=== PATIENT | male | born 1965 | race Two or more races ===

== ENCOUNTER 2019-11-08 13:09 | Inpatient (IN) | payer MEDICAID ==
[~2019-11-08] VITALS: Ht 167.6 cm; Wt 64.9 kg
[2019-11-08] MEDS ORDERED: SODIUM CHLORIDE 0.9% 1,000 ML IV ONE (15:22)
[2019-11-08 16:23] LABS: CHLORIDE 105 mEq/L (98-107)
[2019-11-08 16:26] LABS: PARTIAL THROMBOPLASTIN TIME 28.9 sec (23.4-31.0); PROTHROMBIN TIME 10.7 sec (9.6-11.0)
[2019-11-08 16:37] LABS: CLARITY URINE CLOUDY (CLEAR); COLOR URINE DARK YELLOW (YELLOW); KETONES URINE NEGATIVE (NEGATIVE); LEUKOCYTE ESTERASE URINE 3+ (NEGATIVE); NITRITE URINE POSITIVE (NEGATIVE); OCCULT BLOOD URINE 2+ (NEGATIVE); PH URINE 6.5 (4.5-8.0); PROTEIN URINE TRACE (NEGATIVE); SPECIFIC GRAVITY URINE 1.015 (1.005-1.030)
[2019-11-08 16:45] LABS: BASOPHILS % 0.5 % (0.0-2.0); EOSINOPHILS % 5.2 % (0.0-5.0); HEMATOCRIT. 34.7 % (42.0-52.0); HEMOGLOBIN. 11.9 g/dL (14.0-18.0); LYMPHOCYTES % 39.7 % (20.0-50.0); MEAN CORPUSCULAR HEMOGLOBIN 29.3 pg (28.0-32.0); MEAN CORPUSCULAR VOLUME 85.2 fL (80.0-94.0); MEAN PLATELET VOLUME 8.1 fl (7.4-10.4); MONOCYTES % 7.8 % (2.0-8.0); NEUTROPHILS % 46.8 % (40.0-76.0); PLATELET 285 x1000/uL (130-400); RED BLOOD CELL COUNT 4.08 mill/uL (4.7-6.1); RED CELL DISTRIBUTION WIDTH 15.3 % (11.6-14.6)
[2019-11-08] MEDS ORDERED: METRONIDAZOLE 500 MG PREMIX 100 ML IV ONE (18:00)
[2019-11-08] MEDS ORDERED: PIPERACILLIN/TAZ 3.375G PREMIX 50 ML IV ONE (18:00)
[2019-11-08] MEDS ORDERED: MORPHINE SULFATE 4 MG/ML CPJ (NOT FOR IM USE) IV ONE (18:45)
[2019-11-08] MEDS ORDERED: ONDANSETRON HCL 4MG/2ML INJ IV ONE (18:45)
[2019-11-08 22:00] VITALS: BP 112/74
[2019-11-08] MEDS ORDERED: ONDANSETRON HCL 4MG/2ML INJ IV PRN (22:30)
[2019-11-08] MEDS ORDERED: ACETAMINOPHEN 325MG TABLET PO PRN (22:30)
[2019-11-08] MEDS: LEVOFLOXACIN 500MG PREMIX 100 ML IV SCH (23:39)
[2019-11-08] MEDS: ATORVASTATIN CALCIUM 40MG TABLET PO SCH (23:39)
[2019-11-09] VITALS: BP 106/59
[2019-11-09] MEDS ORDERED: LIP40 PO (00:33)
[2019-11-09] MEDS ORDERED: DIAZ5TAB4 PO (00:33)
[2019-11-09] MEDS ORDERED: APIX5TAB PO (00:33)
[2019-11-09] MEDS ORDERED: DOCU-138 PO (00:33)
[2019-11-09] MEDS ORDERED: ASPI-1158 PO (00:33)
[2019-11-09] MEDS ORDERED: MORP15TA54 PO (00:33)
[2019-11-09] MEDS: METRONIDAZOLE 500 MG PREMIX 100 ML IV SCH ×3 (01:27→17:11)
[2019-11-09 04:00] VITALS: BP 128/80
[2019-11-09 08:00] VITALS: BP 109/73
[2019-11-09 08:34] LABS: BASOPHILS % 0.4 % (0.0-2.0); EOSINOPHILS % 2.6 % (0.0-5.0); HEMATOCRIT. 34.3 % (42.0-52.0); HEMOGLOBIN. 11.5 g/dL (14.0-18.0); LYMPHOCYTES % 28.2 % (20.0-50.0); MEAN CORPUSCULAR HEMOGLOBIN 28.7 pg (28.0-32.0); MEAN CORPUSCULAR VOLUME 85.7 fL (80.0-94.0); MEAN PLATELET VOLUME 7.9 fl (7.4-10.4); MONOCYTES % 7.4 % (2.0-8.0); NEUTROPHILS % 61.4 % (40.0-76.0); PLATELET 299 x1000/uL (130-400); RED CELL DISTRIBUTION WIDTH 15.4 % (11.6-14.6)
[2019-11-09 08:39] LABS: CHLORIDE 108 mEq/L (98-107)
[2019-11-09] MEDS: ASPIRIN 81MG TABLET PO SCH (08:50)
[2019-11-09] MEDS: DIAZEPAM 5 MG TABLET PO SCH ×2 (08:50→20:31)
[2019-11-09] MEDS: DOCUSATE SODIUM 100MG CAPSULE PO SCH ×2 (08:50→17:12)
[2019-11-09] MEDS: APIXABAN 5 MG TABLET PO SCH ×2 (08:50→17:12)
[2019-11-09] MEDS: MORPHINE SULFATE 15MG TABLET SR PO SCH ×2 (08:51→20:32)
[2019-11-09] MEDS: PANTOPRAZOLE SODIUM 40 MG/VIAL IV SCH (08:52)
[2019-11-09 12:04] VITALS: BP 110/67
[2019-11-09 16:04] VITALS: BP 108/64
[2019-11-09 20:00] VITALS: BP 105/63
[2019-11-09] MEDS: ATORVASTATIN CALCIUM 40MG TABLET PO SCH (20:31)
[2019-11-10] VITALS: BP 133/87
[2019-11-10] MEDS: LEVOFLOXACIN 500MG PREMIX 100 ML IV SCH (00:43)
[2019-11-10 04:00] VITALS: BP 132/88
[2019-11-10] MEDS: METRONIDAZOLE 500 MG PREMIX 100 ML IV SCH ×2 (04:30→09:54)
[2019-11-10 06:46] LABS: HEMOGLOBIN 11.2 g/dL (14.0-18.0); MEAN CORPUSCULAR HEMOGLOBIN 29.4 pg (28.0-32.0); MEAN CORPUSCULAR VOLUME 84.3 fL (80.0-94.0); PLATELET 278 x1000/uL (130-400); RED CELL DISTRIBUTION WIDTH 15.4 % (11.6-14.6)
[2019-11-10 07:07] LABS: CHLORIDE 104 mEq/L (98-107)
[2019-11-10 08:00] VITALS: BP 116/73
[2019-11-10] MEDS: MORPHINE SULFATE 15MG TABLET SR PO SCH ×2 (08:25→20:47)
[2019-11-10] MEDS: DOCUSATE SODIUM 100MG CAPSULE PO SCH ×3 (08:25→16:16)
[2019-11-10] MEDS: APIXABAN 5 MG TABLET PO SCH ×2 (08:25→16:10)
[2019-11-10] MEDS: ASPIRIN 81MG TABLET PO SCH (08:25)
[2019-11-10] MEDS: DIAZEPAM 5 MG TABLET PO SCH ×2 (08:25→20:47)
[2019-11-10] MEDS: PANTOPRAZOLE SODIUM 40 MG/VIAL IV SCH (08:25)
[2019-11-10 12:00] VITALS: BP 102/65
[2019-11-10 16:00] VITALS: BP 93/64
[2019-11-10] MEDS: LEVOFLOXACIN 500MG TABLET PO SCH (16:10)
[2019-11-10 20:00] VITALS: BP 102/66
[2019-11-10] MEDS: ATORVASTATIN CALCIUM 40MG TABLET PO SCH (20:47)
[2019-11-10] MEDS: METRONIDAZOLE 500MG TABLET PO SCH (21:25)
[2019-11-11] VITALS: BP 105/66
[2019-11-11 04:00] VITALS: BP 135/79
[2019-11-11] MEDS: METRONIDAZOLE 500MG TABLET PO SCH ×3 (05:24→21:04)
[2019-11-11 08:00] VITALS: BP 99/71
[2019-11-11] MEDS: APIXABAN 5 MG TABLET PO SCH ×2 (09:06→17:27)
[2019-11-11] MEDS: ASPIRIN 81MG TABLET PO SCH (09:06)
[2019-11-11] MEDS: DOCUSATE SODIUM 100MG CAPSULE PO SCH ×2 (09:06→17:00)
[2019-11-11] MEDS: FAMOTIDINE 40MG TABLET PO SCH ×2 (09:07→21:02)
[2019-11-11] MEDS: MORPHINE SULFATE 15MG TABLET SR PO SCH ×2 (09:07→21:03)
[2019-11-11] MEDS: DIAZEPAM 5 MG TABLET PO SCH ×2 (09:08→21:02)
[2019-11-11] MEDS: LEVOFLOXACIN 500MG TABLET PO SCH (11:07)
[2019-11-11] MEDS: CEFTRIAXONE 2 G in DEXTROSE 5% WATER 50 ML IV SCH (14:00)
[2019-11-11 16:00] VITALS: BP 105/57
[2019-11-11 20:56] VITALS: BP 96/63
[2019-11-11] MEDS: ATORVASTATIN CALCIUM 40MG TABLET PO SCH (21:02)
[2019-11-12] VITALS: BP 121/74
[2019-11-12 04:00] VITALS: BP 100/63
[2019-11-12] MEDS: METRONIDAZOLE 500MG TABLET PO SCH ×2 (06:17→16:45)
[2019-11-12 08:00] VITALS: BP 104/64
[2019-11-12] MEDS: ASPIRIN 81MG TABLET PO SCH (08:09)
[2019-11-12] MEDS: APIXABAN 5 MG TABLET PO SCH ×2 (08:09→17:00)
[2019-11-12] MEDS: DIAZEPAM 5 MG TABLET PO SCH ×2 (08:10→20:09)
[2019-11-12] MEDS: DOCUSATE SODIUM 100MG CAPSULE PO SCH ×2 (08:10→17:00)
[2019-11-12] MEDS: FAMOTIDINE 40MG TABLET PO SCH ×2 (08:10→20:10)
[2019-11-12] MEDS: MORPHINE SULFATE 15MG TABLET SR PO SCH ×2 (08:10→20:10)
[2019-11-12 12:00] VITALS: BP 109/75
[2019-11-12 16:00] VITALS: BP 109/72
[2019-11-12] MEDS: CEFTRIAXONE 2 G in DEXTROSE 5% WATER 50 ML IV SCH (16:45)
[2019-11-12 20:10] VITALS: BP 62/104
[2019-11-12] MEDS: ATORVASTATIN CALCIUM 40MG TABLET PO SCH (20:10)
== END 2019-11-12 21:30 | DRG 254 ==
LOC: ER 13:09 → 6EST 18:27 → EDBEDREQTM 18:32 → EDBEDREQSVC 18:32 → EDBEDREQ 18:32 → ENRESERV 19:51
PROVIDERS: ADMIT Internal Medicine; ATTEND Internal Medicine
DX: K62.89 Other specified diseases of anus and rectum (principal); G82.20 Paraplegia, unspecified; K52.9 Noninfective gastroenteritis and colitis, unspecified; T85.9XXA Unspecified complication of internal prosthetic device, implant and graft, initial encounter; N30.00 Acute cystitis without hematuria; B96.1 Klebsiella pneumoniae [K. pneumoniae] as the cause of diseases classified elsewhere; Y83.8 Other surgical procedures as the cause of abnormal reaction of the patient, or of later complication, without mention of misadventure at the time of the procedure; Y92.89 Other specified places as the place of occurrence of the external cause; Z86.711 Personal history of pulmonary embolism; Z86.718 Personal history of other venous thrombosis and embolism; Z88.8 Allergy status to other drugs, medicaments and biological substances; I25.2 Old myocardial infarction; Z93.3 Colostomy status
CPT/HCPCS: 36415; 71045; 74176; 80048; 80053; 81003; 83605; 83880; 84145; 84484; 85025; 85027; 87077; 87186; 93005; 99285; C9113; J0696; J1956; J2270; J2405; J2543; J3490; J7030; J7040; J7060